=== PATIENT | female | born 1955 | race Caucasian/White ===

== ENCOUNTER → 2017-06-15 | Outpatient (CLI) | payer BC ==
--- NOTE | 2017-06-17 07:04 | MM ---
Reason for exam: screening (asymptomatic). Last mammogram was performed 1 year and 3 months ago. History: Patient is postmenopausal. Physical Findings: A clinical breast exam by your physician is recommended on an annual basis and results should be correlated with mammographic findings. MG Screening Mammo w CAD Bilateral CC and MLO view(s) were taken. Prior study comparison: March 10, 2016, bilateral MG screening mammo w CAD. November 15, 2014, bilateral MG screening mammo w CAD. There are scattered fibroglandular densities. No suspicious abnormality. No significant changes when compared with prior studies. ASSESSMENT: Negative, BI-RAD 1 RECOMMENDATION: Routine screening mammogram of both breasts in 1 year.
== END | disposition home or self-care (01) ==
LOC: RADMAMWWP 07:51
PROVIDERS: ATTEND Family Medicine
DX: Z12.31 Encounter for screening mammogram for malignant neoplasm of breast (principal)

== ENCOUNTER 2017-07-01 07:32 | Day surgery (SDC) | payer BC ==
[2017-06-29 14:47] VITALS: BMI 25.4
[~2017-07-01 07:32] MED LIST: LACTATED RINGERS 1,000 ML IV SCH
[2017-07-01 07:49] VITALS: TEMP 98.7
[2017-07-01 08:05] LABS: Glucose,Whole Blood 165 mg/dL (75-99)
--- NOTE | 2017-07-01 09:04 | P.GSHP ---
History of Present Illness H&P Date: 07/01/17 Chief Complaint: GERD, screening colonoscopy This a 62-year-old female who's had issues with GERD. She will stay for EGD and screening colonoscopy. Her last colonoscopy approximately 12 years ago. Past Medical History Past Medical History: Asthma, Diabetes Mellitus, GERD/Reflux Additional Past Medical History / Comment(s): SEASONAL ALLERGIES History of Any Multi-Drug Resistant Organisms: None Reported Past Surgical History: Adenoidectomy, Cholecystectomy, Orthopedic Surgery, Tonsillectomy, Tubal Ligation Additional Past Surgical History / Comment(s): RT TRIGGER FINGER SX. LT ROTATOR CUFF REPAIR. COLONOSCOPY Past Anesthesia/Blood Transfusion Reactions: Motion Sickness, Postoperative Nausea & Vomiting (PONV) Smoking Status: Former smoker - Past Family History Mother Family Medical History: No Reported History Medications and Allergies Home Medications Medication Instructions Recorded Confirmed Type Ascorbic Acid [Vitamin C] 500 mg PO DAILY 06/29/17 07/01/17 History Magnesium Oxide [Mag-Ox] 400 mg PO DAILY 06/29/17 07/01/17 History Montelukast [Singulair] 10 mg PO HS 06/29/17 07/01/17 History Omeprazole [PriLOSEC] 20 mg PO AC-SUPPER 06/29/17 07/01/17 History Potassium 99 mg PO DAILY 06/29/17 07/01/17 History Vitamin B Complex 1 each PO DAILY 06/29/17 07/01/17 History Vitamin E (Dl,Tocopheryl Acet) 400 unit PO DAILY 06/29/17 07/01/17 History [Vitamin E] sitaGLIPtin [Januvia] 100 mg PO DAILY 06/29/17 07/01/17 History Allergies Allergy/AdvReac Type Severity Reaction Status Date / Time Penicillins Allergy Anaphylaxis Verified 07/01/17 07:45 Surgical - Exam Vital Signs Resp 16 07/01/17 07:41 - General well developed, no distress - Eyes PERRL - ENT normal pinna - Neck no masses - Respiratory normal expansion - Cardiovascular Rhythm: regular - Abdomen Abdomen: soft, non tender Results - Labs Abnormal Lab Results - Last 24 Hours (Table) 07/01/17 Range/Units 07:56 POC Glucose (mg/dL) 165 H (75-99) mg/dL Assessment and Plan Plan: GERD we'll perform EGD. We'll perform screening colonoscopy.
[2017-07-01] MEDS ORDERED: PROPOFOL 10 MG/ML 20 ML VIAL IV ONE ×2 (09:05→10:08)
--- NOTE | 2017-07-01 09:21 | P.OP ---
Date of Procedure: 07/01/17 Preoperative Diagnosis: Screening colonoscopy Postoperative Diagnosis: Normal colon Procedure(s) Performed: Colonoscopy Anesthesia: MAC Surgeon: Rudy Garza Pathology: none sent Condition: stable Disposition: PACU Description of Procedure: PROCEDURE: The patient was placed on the endoscopy table in the lateral position. Digital rectal examination was performed which revealed no abnormalities. Flexible colonoscope was then placed in the patient's anus and passed throughout the entire colon. The ileocecal valve was visualized. The cecum, ascending, transverse, descending and sigmoid colon were normal. The rectum was normal as well. There were no masses, polyps or diverticula noted in the entire colon. SUMMARY OF FINDINGS: Normal colonoscopy.
[2017-07-01] MEDS ORDERED: IV FLUID CONTINUATION 1,000 ML IV ONE (10:07)
--- NOTE | 2017-07-01 10:20 | P.OP ---
Date of Procedure: 07/01/17 Preoperative Diagnosis: GERD Postoperative Diagnosis: Antral gastritis No hiatal hernia Mild esophagitis Procedure(s) Performed: EGD Anesthesia: MAC Surgeon: Rudy Garza Pathology: other (Antral esophagus) Condition: stable Disposition: PACU Description of Procedure: The patient's placed on the endoscopy table lateral position. She received IV sedation. The gastroscope placed oropharynx past esophagus stomach. Scope was placed through the pylorus. First and second portion of duodenum appeared normal. Scope summer back the antrum this. Mildly inflamed. A biopsies performed. The scope was then retroflexed and the remainder some appeared normal. There is no evidence of hiatal hernia. GE junction was at 40 cm. The distal esophagus. Inflamed a biopsies performed. The proximal esophagus appeared normal. Scope was withdrawn for patient.
[2017-07-01 10:24] VITALS: RESP 16
[2017-07-01 10:49] VITALS: BP 120/68; PULSE 78
== END 2017-07-01 11:15 | disposition home or self-care (01) ==
LOC: ORWHC2ENDO 07:32
PROVIDERS: ATTEND Surgery
DX: Z12.11 Encounter for screening for malignant neoplasm of colon (principal); K21.0 Gastro-esophageal reflux disease with esophagitis; K29.50 Unspecified chronic gastritis without bleeding; J30.9 Allergic rhinitis, unspecified; E11.9 Type 2 diabetes mellitus without complications; Z88.0 Allergy status to penicillin; Z79.84 Long term (current) use of oral hypoglycemic drugs; Z79.899 Other long term (current) drug therapy; Z87.891 Personal history of nicotine dependence
CPT/HCPCS: 88305; 88342; 45378; 43239; J2704

== ENCOUNTER → 2018-04-28 | Outpatient (CLI) | payer BC ==
[2018-04-28 13:00] LABS: Basophils % (A) 1 %; Eosinophils # (A) 0.2 k/uL (0-0.7); Eosinophils % (A) 3 %; HCT 39.7 % (34.0-46.0); HGB 13.5 gm/dL (11.4-16.0); Lymphocytes # (A) 1.6 k/uL (1.0-4.8); Lymphocytes % (A) 25 %; MCH 30.6 pg (25.0-35.0); MCHC 33.8 g/dL (31.0-37.0); MCV 90.5 fL (80.0-100.0); Mean Platelet Volume 7.3; Monocytes # (A) 0.3 k/uL (0-1.0); Monocytes % (A) 5 %; Neutrophils # (A) 4.2 k/uL (1.3-7.7); Neutrophils % (A) 65 %; Platelet Count 222 k/uL (150-450); RBC 4.39 m/uL (3.80-5.40); RDW 12.6 % (11.5-15.5); WBC 6.4 k/uL (3.8-10.6)
== END | disposition home or self-care (01) ==
LOC: LABPAT 11:33
PROVIDERS: ATTEND Obstetrics & Gynecology Obstetrics
DX: Z01.818 Encounter for other preprocedural examination (principal); Z01.812 Encounter for preprocedural laboratory examination; N95.0 Postmenopausal bleeding
CPT/HCPCS: 36415; 85025; 93005

== ENCOUNTER 2018-05-16 08:57 | Day surgery (SDC) | payer BC ==
[2018-05-11 10:35] VITALS: BMI 23.8
[~2018-05-16 08:57] MED LIST changes: +DEXAMETHASONE SOD PHOSPHATE 10 MG/ML 1 ML VIAL IV ONE; +LIDOCAINE 1% 20 ML VIAL (10MG/ML) FOR IV START INTRADERMA PRN; +MIDAZOLAM 2 MG/2 ML VIAL IV PRN; +ONDANSETRON 4 MG/2 ML VIAL IVP ONE; +Pre Op ABX Message 1 EACH MISC MISCELLANE ONE; +fentaNYL (PF) 50 MCG/ML 2 ML AMP IV PRN
[2018-05-16 09:41] VITALS: RESP 16
[2018-05-16 09:55] LABS: Glucose,Whole Blood 111 mg/dL (75-99)
[2018-05-16] MEDS ORDERED: KETOROLAC 30 MG/ML 1 ML VIAL ONE (10:21)
[2018-05-16] MEDS ORDERED: PROPOFOL 10 MG/ML 20 ML VIAL IV ONE (10:21)
[2018-05-16] MEDS ORDERED: LIDOCAINE 1% INJ 10MG/ML (20 ML MDV) ONE (10:21)
[2018-05-16] MEDS ORDERED: fentaNYL (PF) 50 MCG/ML 2 ML AMP ONE (10:21)
[2018-05-16] MEDS ORDERED: MIDAZOLAM 2 MG/2 ML VIAL ONE (10:21)
--- NOTE | 2018-05-16 10:47 | P.OP ---
Date of Procedure: 05/16/18 Preoperative Diagnosis: PMB, endometrial polyp with non diagnostic office EMB Anesthesia: RAMONAA Surgeon: Cassandra Heard Estimated Blood Loss (ml): 5 IV fluids (ml): 200 Urine output (ml): 100 Pathology: other (Endometrial curettings) Condition: stable Disposition: PACU Indications for Procedure: endometrial polyp, PMB Operative Findings: Atrophic appearing endometrium Description of Procedure: Patient was seen in the preoperative suite and informed consent was obtained. All questions were answered. Next Patient was taken to the operating suite where general anesthesia was obtained without difficulty by the anesthesia department. She was prepped and draped in normal sterile fashion in the dorsal lithotomy position. A red rubber catheter was used to drain the bladder clear yellow urine. A weighted speculum was placed in the posterior vaginal vault and the anterior lip of the cervix was visualized and grasped with a single-tooth tenaculum. The endocervical canal was then dilated the uterine sound measured 6 cm. The hysteroscope was then placed in to the endometrial cavity and atrophic appearing endometrium was noted A sharp curettage was performed and a scant amount of tissue was noted. The single-tooth tenaculum was taken off of the anterior lip of the cervix and hemostasis was appreciated. All counts are correct 2 patient was taken the recovery room awake and in stable condition
[2018-05-16 11:00] VITALS: TEMP 97.6
[2018-05-16 11:06] LABS: Glucose,Whole Blood 129 mg/dL (75-99)
[2018-05-16 12:15] VITALS: BP 131/63; PULSE 68
== END 2018-05-16 12:37 | disposition home or self-care (01) ==
LOC: OR 08:57
PROVIDERS: ATTEND Obstetrics & Gynecology Obstetrics
DX: N84.0 Polyp of corpus uteri (principal); E11.9 Type 2 diabetes mellitus without complications; F32.9 Major depressive disorder, single episode, unspecified; K21.9 Gastro-esophageal reflux disease without esophagitis; Z79.899 Other long term (current) drug therapy; Z90.49 Acquired absence of other specified parts of digestive tract; Z98.51 Tubal ligation status; Z88.0 Allergy status to penicillin; Z79.82 Long term (current) use of aspirin; Z83.3 Family history of diabetes mellitus; Z79.84 Long term (current) use of oral hypoglycemic drugs
CPT/HCPCS: 88305; 58558; J2250; J1100; J2405; J2001; J3010; J1885; J2704

== ENCOUNTER → 2018-09-28 | Outpatient (CLI) | payer BC ==
[2018-09-29 03:18] LABS: Vitamin D 25 Hydroxy 30.6 ng/mL (30.0-100.0)
== END ==
LOC: LABWHC1 15:34
PROVIDERS: ATTEND Psychiatry & Neurology Neurology
DX: G62.9 Polyneuropathy, unspecified (principal); M79.10 Myalgia, unspecified site; R41.3 Other amnesia
CPT/HCPCS: 36415; 82306; 82607; 82747

== ENCOUNTER → 2018-10-11 | Outpatient (CLI) | payer BC ==
--- NOTE | 2018-10-12 07:55 | CT ---
EXAMINATION TYPE: CT chest wo con DATE OF EXAM: 10/11/2018 COMPARISON: None HISTORY: SOB x4 days CT DLP: 498 mGycm, Automated exposure control for dose reduction was used. CONTRAST: Performed injected with 0 mL of Isovue 300. TECHNIQUE: Axial images were obtained at 5 mm thick sections. Reconstructed images are reviewed on [employer] computer in the coronal plane. FINDINGS: Portion of the thyroid visualized is normal. Some mild pneumonitis changes in the right apex. No masses are identified. No enlarged mediastinal or hilar adenopathy is evident. The ascending aorta diameter at the level o f the main pulmonary artery is 3.3 cm. The main pulmonary artery diameter at the bifurcation is 2.[address] sections are obtained through the upper abdomen. Abdomen is essentially unremarkable. IMPRESSIONS: 1. There is some mild increased lung markings at the lung apices may be related to some scarring or m ild pneumonitis change. An acute pulmonary process not otherwise evident.
== END | disposition home or self-care (01) ==
LOC: RADCTMAIN 16:36
PROVIDERS: ATTEND Internal Medicine Rheumatology
DX: D86.9 Sarcoidosis, unspecified (principal)
CPT/HCPCS: 71250

== ENCOUNTER → 2019-06-12 | Outpatient (CLI) | payer BC ==
--- NOTE | 2019-06-14 09:42 | MM ---
Reason for exam: screening (asymptomatic). Last mammogram was performed 2 years ago. History: Patient is postmenopausal. Physical Findings: A clinical breast exam by your physician is recommended on an annual basis and results should be correlated with mammographic findings. MG Screening Mammo w CAD Bilateral CC and MLO view(s) were taken. Prior study comparison: June 15, 2017, bilateral MG screening mammo w CAD. March 10, 2016, bilateral MG screening mammo w CAD. The breast tissue is almost entirely fat. No significant changes when compared with prior studies. ASSESSMENT: Negative, BI-RAD 1 RECOMMENDATION: Routine screening mammogram of both breasts in 1 year.
== END ==
LOC: RADMAMWWP 16:29
PROVIDERS: ATTEND Obstetrics & Gynecology Obstetrics
DX: Z12.31 Encounter for screening mammogram for malignant neoplasm of breast (principal)
CPT/HCPCS: 77067

== ENCOUNTER → 2020-09-09 | Outpatient (CLI) | payer MEDICARE ==
--- NOTE | 2020-09-10 11:19 | MM ---
Reason for exam: screening (asymptomatic). Last mammogram was performed 1 year and 3 months ago. History: Patient is postmenopausal. Physical Findings: A clinical breast exam by your physician is recommended on an annual basis and results should be correlated with mammographic findings. MG Screening Mammo w CAD Bilateral CC and MLO view(s) were taken. Prior study comparison: June 12, 2019, bilateral MG screening mammo w CAD. June 15, 2017, bilateral MG screening mammo w CAD. The breast tissue is almost entirely fat. No significant changes when compared with prior studies. ASSESSMENT: Negative, BI-RAD 1 RECOMMENDATION: Routine screening mammogram of both breasts in 1 year.
== END | disposition home or self-care (01) ==
LOC: RADMAMWWP 07:42
PROVIDERS: ATTEND Family Medicine
DX: Z12.31 Encounter for screening mammogram for malignant neoplasm of breast (principal)
CPT/HCPCS: 77067

== ENCOUNTER 2020-10-16 07:29 | Day surgery (SDC) | payer MEDICARE ==
[2020-10-14 12:10] VITALS: BMI 25.3
[~2020-10-16 07:29] MED LIST changes: -DEXAMETHASONE SOD PHOSPHATE 10 MG/ML 1 ML VIAL IV ONE; +LIDOCAINE 1% (10MG/ML) FOR IV START INTRADERMA PRN; -LIDOCAINE 1% 20 ML VIAL (10MG/ML) FOR IV START INTRADERMA PRN; -MIDAZOLAM 2 MG/2 ML VIAL IV PRN; -ONDANSETRON 4 MG/2 ML VIAL IVP ONE; -Pre Op ABX Message 1 EACH MISC MISCELLANE ONE; -fentaNYL (PF) 50 MCG/ML 2 ML AMP IV PRN
[2020-10-16 07:52] VITALS: RESP 16; TEMP 96.9
[2020-10-16 08:03] LABS: Glucose,Whole Blood 125 mg/dL (75-99)
[2020-10-16] MEDS ORDERED: PROPOFOL 10 MG/ML 20 ML VIAL IV ONE (08:34)
[2020-10-16] MEDS ORDERED: LIDOCAINE 1% INJ 10MG/ML (20 ML MDV) ONE (08:34)
--- NOTE | 2020-10-16 08:40 | P.GSHP ---
History of Present Illness H&P Date: 10/16/20 Chief Complaint: GI bleed This is a 65-year-old female presents today for EGD. She's had issues rectal bleeding. Past Medical History Past Medical History: Asthma, Diabetes Mellitus, GERD/Reflux Additional Past Medical History / Comment(s): bleeding with stool,hx SEASONAL ALLERGIES,POST MENOPAUSAL BLEEDING,MIGRAINES History of Any Multi-Drug Resistant Organisms: None Reported Past Surgical History: Adenoidectomy, Cholecystectomy, Orthopedic Surgery, Tonsillectomy, Tubal Ligation Additional Past Surgical History / Comment(s): RT TRIGGER FINGER SX. LT ROTATOR CUFF REPAIR. COLONOSCOPY Past Anesthesia/Blood Transfusion Reactions: Motion Sickness, Postoperative Nausea & Vomiting (PONV) Smoking Status: Former smoker - Past Family History Mother Family Medical History: No Reported History Medications and Allergies Home Medications Medication Instructions Recorded Confirmed Type Ascorbic Acid [Vitamin C] 1,000 mg PO DAILY 06/29/17 10/16/20 History Montelukast [Singulair] 10 mg PO HS 06/29/17 10/16/20 History Potassium 99 mg PO DAILY 06/29/17 10/16/20 History Aspirin [Adult Low Dose Aspirin EC] 81 mg PO DAILY 05/11/18 10/16/20 History Mirabegron [Myrbetriq] 50 mg PO DAILY 05/11/18 10/16/20 History Repaglinide [Prandin] 1 mg PO DAILY 05/11/18 10/16/20 History Cholecalciferol (Vitamin D3) 125 mcg PO BID 10/14/20 10/16/20 History [Vitamin D3 (5000 Iu)] Hydroxychloroquine Sulfate 200 mg PO BID 10/14/20 10/16/20 History [Plaquenil] Magnesium 250 mg PO DAILY 10/14/20 10/16/20 History Rosuvastatin Calcium 20 mg PO DAILY 10/14/20 10/16/20 History Vitamin B Complex 1 each PO Q2D 10/14/20 10/16/20 History ramipriL [Ramipril] 2.5 mg PO QAM 10/14/20 10/16/20 History Allergies Allergy/AdvReac Type Severity Reaction Status Date / Time Penicillins Allergy Anaphylaxis Verified 10/16/20 07:45 Surgical - Exam Vital Signs Temp Pulse Resp BP Pulse Ox 96.9 F L 73 16 126/66 95 10/16/20 07:44 10/16/20 07:44 10/16/20 07:44 10/16/20 07:44 10/16/20 07:44 - General well developed, well nourished, no distress - Eyes PERRL - ENT normal pinna - Neck no masses - Respiratory normal expansion - Cardiovascular Rhythm: regular - Abdomen Abdomen: soft, non tender Results - Labs Abnormal Lab Results - Last 24 Hours (Table) 10/16/20 Range/Units 08:01 POC Glucose (mg/dL) 125 H (75-99) mg/dL Assessment and Plan Assessment: GI bleed. We'll perform EGD.
--- NOTE | 2020-10-16 08:47 | P.OP ---
Date of Procedure: 10/16/20 Preoperative Diagnosis: GI bleed Postoperative Diagnosis: Antral gastritis Hiatal hernia Esophagitis Procedure(s) Performed: EGD Anesthesia: MAC Surgeon: Rudy Garza Pathology: other (Antrum, esophagus) Condition: stable Disposition: PACU Description of Procedure: The patient's placed on the endoscopy table in the lateral position. She received IV sedation. The gastroscope placed oropharynx passed in the esophagus into the stomach. Scope was then placed through the pylorus. First and second portion of the duodenum appeared normal. Scope was then brought back the antrum this. Mildly inflamed. A biopsies performed. Scope was unretroflexed and remainder of the stomach appeared normal. Patient had a moderate size hiatal hernia. The GE junction was at 38 cm. The distal esophagus was mildly inflamed. A biopsies performed. The proximal esophagus appeared normal. Scope was withdrawn.
[2020-10-16 09:27] VITALS: BP 118/72; PULSE 81
== END 2020-10-16 09:38 | disposition home or self-care (01) ==
LOC: ORWHC2ENDO 07:29
PROVIDERS: ATTEND Surgery
DX: K29.71 Gastritis, unspecified, with bleeding (principal); K31.9 Disease of stomach and duodenum, unspecified; K21.01 Gastro-esophageal reflux disease with esophagitis, with bleeding; K44.9 Diaphragmatic hernia without obstruction or gangrene; J45.909 Unspecified asthma, uncomplicated; E11.9 Type 2 diabetes mellitus without complications; I10 Essential (primary) hypertension; E78.5 Hyperlipidemia, unspecified; Z87.42 Personal history of other diseases of the female genital tract; Z86.69 Personal history of other diseases of the nervous system and sense organs; Z90.89 Acquired absence of other organs; Z90.49 Acquired absence of other specified parts of digestive tract; Z98.890 Other specified postprocedural states; Z98.51 Tubal ligation status; Z87.898 Personal history of other specified conditions; Z91.89 Other specified personal risk factors, not elsewhere classified; Z87.891 Personal history of nicotine dependence; Z79.899 Other long term (current) drug therapy; Z79.84 Long term (current) use of oral hypoglycemic drugs; Z79.82 Long term (current) use of aspirin; Z88.0 Allergy status to penicillin
CPT/HCPCS: 88305; 43239; J2001; J2704

== ENCOUNTER → 2021-10-01 | Outpatient (CLI) | payer MEDICARE ==
--- NOTE | 2021-10-05 11:43 | MM ---
Reason for exam: screening (asymptomatic). Last mammogram was performed 1 year and 1 month ago. History: Patient is postmenopausal. Physical Findings: A clinical breast exam by your physician is recommended on an annual basis and results should be correlated with mammographic findings. MG 3D Screening Mammo W/Cad Bilateral CC and MLO view(s) were taken. Prior study comparison: September 09, 2020, bilateral MG screening mammo w CAD. June 12, 2019, bilateral MG screening mammo w CAD. The breast tissue is almost entirely fat. No significant changes when compared with prior studies. ASSESSMENT: Negative, BI-RAD 1 RECOMMENDATION: Routine screening mammogram of both breasts in 1 year.
== END | disposition home or self-care (01) ==
LOC: RADMAMWWP 07:57
PROVIDERS: ATTEND Family Medicine
DX: Z12.31 Encounter for screening mammogram for malignant neoplasm of breast (principal); Z78.0 Asymptomatic menopausal state
CPT/HCPCS: 77063; 77067

== ENCOUNTER → 2022-09-28 | Outpatient (CLI) | payer MEDICARE ==
[2022-09-28 18:35] LABS: HCT 38.7 % (37.2-46.3); HGB 12.5 g/dL (12.0-15.0); MCH 30.7 pg (27.0-32.0); MCHC 32.3 g/dL (32.0-37.0); MCV 95.1 fL (80.0-97.0); Mean Platelet Volume 10.3 fL (9.5-12.2); NRBC Per 100 WBC 0 /100 WBCS (0.0-0.0); Platelet Count 216 X 10*3/uL (140-440); RBC 4.07 X 10*6/uL (4.10-5.20); RDW 12.1 % (11.5-14.5); WBC 5.48 X 10*3/uL (4.50-10.00)
[2022-09-28 18:40] LABS: African American GFR (CKD) 96.8 (60.0-200.0); Anion Gap 10.7 mmol/L (10.00-18.00); Blood Urea Nitrogen 19.3 mg/dL (9.0-27.0); Carbon Dioxide 24.2 mmol/L (20.0-27.5); Non-African American GFR(CKD) 83.5 (60.0-200.0); Potassium 4.5 mmol/L (3.5-5.5)
== END | disposition home or self-care (01) ==
LOC: LABPAT 12:32
PROVIDERS: ATTEND Internal Medicine Clinical Cardiac Electrophysiology
DX: Z01.812 Encounter for preprocedural laboratory examination (principal); I48.0 Paroxysmal atrial fibrillation; I49.5 Sick sinus syndrome
CPT/HCPCS: 80051; 82565; 84520; 85027

== ENCOUNTER → 2022-10-05 | Outpatient (CLI) | payer MEDICARE ==
--- NOTE | 2022-10-05 20:15 | MM ---
Reason for Exam: Screening (asymptomatic). Last screening mammogram was performed 12 month(s) ago. Patient History: Menarche at age 7. First Full-Term at age 23. Postmenopausal. Risk Values: Rosie 5 year model risk: 2.1%. NCI Lifetime model risk: 6.4%. Prior Study Comparison: 06/12/2019 Bilateral Screening Mammogram, [facility]. 09/09/2020 Bilateral Screening Mammogram, [facility]. 10/01/2021 Bilateral Screening Mammogram, [facility]. Tissue Density: There are scattered fibroglandular densities. Findings: Analyzed By CAD. There is no suspicious group of microcalcifications or new suspicious mass in either breast. Overall Assessment: Negative, BI-RAD 1 Management: Screening Mammogram of both breasts in 1 year. 1. Patient should continue monthly self breast exams. 2. A clinical breast exam by your physician is recommended on an annual basis. 3. This exam should not preclude additional follow-up of suspicious palpable abnormalities. Electronically signed and approved by: Jordan Pillai M.D. Radiologist
== END | disposition home or self-care (01) ==
LOC: RADMAMWWP 06:53
PROVIDERS: ATTEND Family Medicine
DX: Z12.31 Encounter for screening mammogram for malignant neoplasm of breast (principal); Z78.0 Asymptomatic menopausal state
CPT/HCPCS: 77063; 77067

== ENCOUNTER 2023-01-13 13:35 | Day surgery (SDC) | payer MEDICARE ==
[2023-01-10 15:04] VITALS: BMI 24.6
[~2023-01-13 13:35] MED LIST changes: +CLINDAMYCIN 600 MG in SODIUM CHLORIDE 0.9% 250 ML IRRIGATION PRN; +CLINDAMYCIN 900 MG in DEXTROSE 5% IN WATER 50 ML IVPB PRN; -LACTATED RINGERS 1,000 ML IV SCH; -LIDOCAINE 1% (10MG/ML) FOR IV START INTRADERMA PRN
[2023-01-13] MEDS ORDERED: ONDANSETRON 4 MG/2 ML VIAL IVP STA (14:25)
[2023-01-13] MEDS ORDERED: METOCLOPRAMIDE 5 MG/ML 2 ML VIAL IVP STA (14:25)
[2023-01-13] MEDS ORDERED: FAMOTIDINE 20 MG/2 ML VIAL IV ONE (14:27)
[2023-01-13] MEDS: SODIUM CHLORIDE 0.9% 1,000 ML IV SCH ×2 (14:30→19:40)
[2023-01-13 14:37] LABS: Glucose,Whole Blood 112 mg/dL (70-110)
[2023-01-13] MEDS ORDERED: diphenhydrAMINE 50 MG/ML 1 ML VIAL ONE (15:40)
[2023-01-13] MEDS ORDERED: fentaNYL (PF) 50 MCG/ML 2 ML AMP ONE (15:40)
[2023-01-13] MEDS ORDERED: MIDAZOLAM 2 MG/2 ML VIAL ONE (15:40)
[2023-01-13] MEDS ORDERED: IOPAMIDOL-370 100ML BTL INJ ONE (16:02)
[2023-01-13] MEDS ORDERED: LIDOCAINE 1% INJ 10MG/ML (20 ML MDV) ONE ×2 (16:12→16:46)
[2023-01-13] MEDS ORDERED: LIDOCAINE 1% INJ 10MG/ML (20 ML MDV) SQ ONE ×3 (16:37→16:47)
[2023-01-13] MEDS ORDERED: ACETAMINOPHEN TAB 325 MG TAB PO PRN (18:26)
--- NOTE | 2023-01-13 18:47 | P.EPPROC ---
- EP Procedure Note Electrophysiology Procedure Note: Diagnosis Severe sick sinus syndrome with junctional escape rhythm with frequent pauses in during the day Prolonged ME interval AV node Wenckebach block less than 130 bpm. Very long ME interval when pacing at 110-120 bpm Bradycardia, standard pacemaker will result in a high RV pacing %, close to 100% Biventricular pacemaker to avoid high RV pacing percentage and manage Sick Sinus Syndrome and AV node disease, symptomatic Procedure LB/ biventricular pacemaker implantation Left upper extremity venogram Details Patient was brought to the EP lab in a fasting state. Written informed consent was obtained prior to the procedure. Conscious sedation provided by anesthesia team Left upper extremity venogram performed. 15 mL IV dye injected. Patent left subclavian/axillary venous system IV antibiotics administered. Local anesthesia administered. A 4 cm incision made in the pectoral area. Subfascial pocket made. Venous access obtained Venous sheaths placed. Leads placed in the right heart Atrial lead position the right atrial appendage. Atrial pacing performed to evaluate AV node. Patient was kept awake specifically to test her AV conduction with atrial pacing Very prolonged paced ME interval at the pacing rate of 110 beats a minute and AV node Wenckebach block less than 130 bpm during atrial pacing Therefore a decision was made to proceed with a biventricular pacemaker instead of a standard dual-chamber pacemaker to avoid a high percentage of RV pacing Medtronic atrial lead, 53 cm passive lead position in the right atrial appendage. Model #4574. P waves 2.5 mV pacing impedance 551 ohms and pacing threshold 0.5 V at 0.4 ms RV lead position in the RV apex. Medtronic passive lead 58 cm, model #4074, R waves 4-5 mV, pacing impedance 1216 ohms and pacing threshold 0.5 V at 0.4 ms LB lead positioned in the RV septum, at the left bundle. Excellent unipolar pacing threshold of 0.75 V at 0.4 ms with a right bundle branch block at time, typical with a pacing stimulus to V6 peak of 88-90 ms Intraoperatively even bipolar pacing had a typical right bundle branch block with an even shorter stim to V6 of 84 ms However when the biventricular pacemaker can was connected, bipolar pacing via the left bundle lead resulted in an RV paced rhythm Therefore unipolar pacing was performed from the left bundle lead Biventricular pacemaker device connected to the leads and placed in the sub fascial pocket Patient tolerated the procedure well without acute complications. Pacemaker programmed to DDDR with preferential left bundle pacing Result Successful biventricular pacemaker implantation with left bundle pacing with a typical right bundle branch block paced QRS with a stim-V6 time of less than 90 ms
[2023-01-13] MEDS ORDERED: ACETAMINOPHEN IV (For NPO) 1,000 MG in EMPTY BAG 1 BAG IVPB ONE (19:00)
[2023-01-13] MEDS: CLINDAMYCIN 900 MG in DEXTROSE 5% IN WATER 50 ML IVPB SCH ×2 (21:49)
[2023-01-13] MEDS ORDERED: IPRATROPIUM BROMIDE 0.06% NASAL SPRAY (15 ML) EA NOSTRIL PRN (22:30)
[2023-01-13] MEDS ORDERED: RIVAROXABAN 20 MG TAB PO SCH (22:30)
[2023-01-13] MEDS: SYMBICORT 80-4.5 MCG INHALER INHALATION SCH (22:37)
[2023-01-14] MEDS: SODIUM CHLORIDE 0.9% 1,000 ML IV SCH ×2 (00:39→00:40)
[2023-01-14 01:13] VITALS: PULSE 68
[2023-01-14] MEDS: CLINDAMYCIN 900 MG in DEXTROSE 5% IN WATER 50 ML IVPB SCH ×2 (03:28)
[2023-01-14 06:04] LABS: Glucose,Whole Blood 109 mg/dL (70-110)
--- NOTE | 2023-01-14 07:02 | XR ---
EXAMINATION TYPE: XR chest 2V DATE OF EXAM: 01/14/2023 COMPARISON: Chest CT 2019 HISTORY: Lead placement check. TECHNIQUE: Frontal and lateral views of the chest are obtained. FINDINGS: There is no focal air space opacity, pleural effusion, or pneumothorax seen. The cardiac silhouette size is stable and within normal limits. Multi lead pacemaker with leads projecting into right atrium, right ventricle, and coronary sinus. The osseous structures are intact. Cholecystectomy clips are noted. IMPRESSION: As above.
[2023-01-14 07:58] VITALS: BP 108/54; RESP 16; TEMP 97.8
--- NOTE | 2023-01-14 08:00 | P.DS ---
Providers Attending physician: Sundeep Merlos Primary care physician: Enriuqe Jesus MD Hospital Course: Patient is doing well. Looks comfortable No hematoma. Minimal soakage No chest pain no dizziness no shortness of breath Normal heart sounds no murmurs no gallops Clear lungs no rhonchi no crackles would air entry Blood pressure low normal Impression Severe sick sinus syndrome with severe daytime bradycardia, not on any medications, normal TSH Abnormal AV node function AV node Wenckebach block less than 130 bpm during testing Even at the pacing rate of 110 beats a minute, paced [place] interval was very prolonged, increasing the likelihood of significant RV pacing after 100% with standard dual-chamber pacing A biventricular pacemaker with left bundle pacing was performed successfully with excellent thresholds and stability Today her twelve-lead EKG shows distal His bundle pacing with nonselective capture at output 3.5 V Plan after completion of IV antibiotics patient may go home Device interrogation today Twelve-lead EKG at lower outputs of 1 V and 2 V to see if this is change in configuration of the QRS with pacing outputs Reassessment of this in 3 months Plan - Discharge Summary Discharge Rx Participant: Yes New Discharge Prescriptions: Continue Montelukast [Singulair] 10 mg PO DAILY Ascorbic Acid [Vitamin C] 1,000 mg PO DAILY Mirabegron [Myrbetriq] 50 mg PO HS Repaglinide [Prandin] 1 mg PO DAILY Vitamin B Complex 1 each PO Q2D Cholecalciferol (Vitamin D3) [Vitamin D3 (5000 Iu)] 125 mcg PO DAILY Hydroxychloroquine Sulfate [Plaquenil] 200 mg PO BID Cyclobenzaprine [Flexeril] 2.5 mg PO HS Omeprazole 40 mg PO DAILY Rivaroxaban [Xarelto] 20 mg PO HS Ginkgo Biloba [place]side Extract [Ginkgo Biloba] 120 mg PO DAILY Losartan Potassium [Cozaar] 12.5 mg PO DAILY Magnesium 400 mg PO DAILY SUMAtriptan succinate 100 mg PO DIRECTED PRN PRN Reason: Migraine Headache Ipratropium [place] 0.06%Nasal [Atrovent Nasal 0.06%] 2 spray EA NOSTRIL DIRECTED PRN PRN Reason: ASthma Fluticasone/Umeclidin/Vilanter [Trelegy Ellipta 100-62.5-25] 1 inhalation INHALATION DIRECTED PRN PRN Reason: Asthma Discharge Medication List Ascorbic Acid [Vitamin C] 1,000 mg PO DAILY 06/29/17 [History] Montelukast [Singulair] 10 mg PO DAILY 06/29/17 [History] Mirabegron [Myrbetriq] 50 mg PO HS 05/11/18 [History] Repaglinide [Prandin] 1 mg PO DAILY 05/11/18 [History] Cholecalciferol (Vitamin D3) [Vitamin D3 (5000 Iu)] 125 mcg PO DAILY 10/14/20 [History] Hydroxychloroquine Sulfate [Plaquenil] 200 mg PO BID 10/14/20 [History] Vitamin B Complex 1 each PO Q2D 10/14/20 [History] Cyclobenzaprine [Flexeril] 2.5 mg PO HS 07/01/21 [History] Losartan Potassium [Cozaar] 12.5 mg PO DAILY 07/01/21 [History] Omeprazole 40 mg PO DAILY 07/01/21 [History] Fluticasone/Umeclidin/Vilanter [Trelegy Ellipta 100-62.5-25] 1 inhalation INHALATION DIRECTED PRN 10/19/22 [History] Ginkgo Biloba [place] Extract [Ginkgo Biloba] 120 mg PO DAILY 10/19/22 [History] Ipratropium [place] 0.06%Nasal [Atrovent Nasal 0.06%] 2 spray EA NOSTRIL DIRECTED PRN 10/19/22 [History] Magnesium 400 mg PO DAILY 10/19/22 [History] Rivaroxaban [Xarelto] 20 mg PO HS 10/19/22 [History] SUMAtriptan succinate 100 mg PO DIRECTED PRN 10/19/22 [History] Follow up Appointment(s)/Referral(s): Sundeep Merlos MD [STAFF PHYSICIAN] - 1 Week Activity/Diet/Wound Care/Special Instructions: PATIENT EDUCATION MATERIAL Instructions following a heart rhythm device implant. 1. Keep dressing DRY for 5 DAYS. You may cover the area with Saran or Cling Wrap, prior to a shower. 2. The dressing will be removed in the Device Clinic at [facility]. Absorbable sutures were used to close the wound. 3. Avoid raising the left arm above the shoulder level. 4 week restriction 4. Avoid arm movements, like backscratching, rubbing the head, or pulling on a cord. 4 weeks restriction 5. Gentle range of motion movements of the shoulder, closest to the incision should be performed to avoid a frozen shoulder. (Pendulum exercises of the shoulder) 6. The opposite arm may be used freely. 7. Avoid driving for 7 days. 8. Avoid activities such as golfing, swimming, weed whacking, lifting more than 10 pounds weight, bowling, gymnastics and weight training/lifting. (6 weeks restriction) 9. Activities such as wood chopping with an axe, pull-ups in the gymnasium, power lifting, arc-welding, being close to home induction cooktops will always be a problem. 10. Arm sling is only a reminder not to raise the arm above the head. You do not need to keep the arm completely immobilized. Your free to move the arm and use it and for normal activities. In case of any problems, please call [facility], [place], @ [phone], Attention: Device Clinic Device clinic follow-up in 5 days Follow-up with primary energy auditor in 3 months Discharge Disposition: HOME SELF-CARE
--- NOTE | 2023-01-14 08:02 | P.PRLE ---
RE: Cassidy Hernandez Dear Carmella rashid has severe sick sinus syndrome with significant daytime bradycardia as well as abnormal AV node function. She has undergone successful A. fib ablation and has not had any further episodes of atrial fibrillation However her Sick Sinus Syndrome persisted despite that Yesterday she underwent a biventricular pacemaker with a left bundle pacing lead, to avoid RV pacing and future risk of cardio myopathy The lead and device are functioning well. She will continue current medications including xarelto Thank you for entrusting me with the care of the patient Warm regards Sincerely Sudneep Merlos
[2023-01-14] MEDS ORDERED: ASCORBIC ACID 500 MG TAB PO SCH (09:00)
[2023-01-14] MEDS ORDERED: CHOLECALCIFEROL 125 MCG (5000 IU) TABLET PO SCH (09:00)
[2023-01-14] MEDS ORDERED: LOSARTAN 25 MG TAB PO SCH (09:00)
[2023-01-14] MEDS ORDERED: REPAGLINIDE 1 MG TAB PO SCH (09:00)
[2023-01-14] MEDS ORDERED: SUMAtriptan succinate 50 MG TAB PO PRN (09:00)
[2023-01-14] MEDS ORDERED: HYDROXYCHLOROQUINE SULFATE 200 MG TAB PO SCH (09:00)
[2023-01-14] MEDS ORDERED: PANTOPRAZOLE 40 MG TABLET PO SCH (09:00)
[2023-01-14] MEDS ORDERED: GINKGO BILOBA LEAF EXTRACT PO SCH (09:00)
[2023-01-14] MEDS ORDERED: FOLIC ACID-VIT B COMPLEX-VIT C 1 CAP PO SCH (09:00)
[2023-01-14] MEDS ORDERED: MAGNESIUM OXIDE 400 MG TAB PO SCH (09:00)
[2023-01-14] MEDS ORDERED: MONTELUKAST 10 MG TAB PO SCH (09:00)
[2023-01-14] MEDS: SYMBICORT 80-4.5 MCG INHALER INHALATION SCH (09:18)
[2023-01-14] MEDS: IPRATROPIUM 0.5 MG/2.5 ML NEBU INHALATION SCH ×2 (09:18→11:53)
[2023-01-14] MEDS ORDERED: CYCLOBENZAPRINE 5 MG TAB PO SCH (21:00)
[2023-01-14] MEDS ORDERED: NON FORMULARY DRUG (Mirabegron [Myrbetriq] 50 MG Tab.Er.24h) PO SCH (21:00)
== END 2023-01-14 13:20 | disposition home or self-care (01) ==
LOC: CATHEP 13:35 → 6NMEDSUR 18:26 → CATHEP 01-14 13:20
PROVIDERS: ATTEND Internal Medicine Clinical Cardiac Electrophysiology
DX: I45.10 Unspecified right bundle-branch block (principal); I49.5 Sick sinus syndrome
CPT/HCPCS: 33225; 33208; 71046; C1769 ×3; C2621; C1887; C1892; C1898 ×2; J2250; J1200; J2765; J2405; J2001; J3010; Q9967

== ENCOUNTER → 2023-10-11 | Outpatient (CLI) | payer MEDICARE ==
--- NOTE | 2023-10-12 08:55 | MM ---
Reason for Exam: Screening (asymptomatic). Last screening mammogram was performed 12 month(s) ago. Patient History: Menarche at age 7. First Full-Term at age 23. Postmenopausal. Risk Values: Rosie 5 year model risk: 2.1%. NCI Lifetime model risk: 6.1%. Prior Study Comparison: 09/09/2020 Bilateral Screening Mammogram, [facility]. 10/01/2021 Bilateral Screening Mammogram, [facility]. 10/05/2022 Bilateral MG 3D screening mammo w/cad, [facility]. Tissue Density: The breast tissue is almost entirely fat. Findings: Analyzed By CAD. There is no suspicious group of microcalcifications or new suspicious mass. Account Development Manager projects over the left axilla limiting evaluation. There is no suspicious group of microcalcifications or new suspicious mass. Pacemaker projects over the left axilla limiting evaluation. Overall Assessment: Negative, BI-RAD 1 Management: Screening Mammogram of both breasts in [address] [facility] will attempt to contact patient to return for supplemental views and ultrasound if indicated. Patient should continue monthly self-breast exams. A clinical breast exam by your physician is recommended on an annual basis. This exam should not preclude additional follow-up of suspicious palpable abnormalities. Note on Rosie scores and lifetime risk: 1. A Rosie score greater than 3% is considered moderate risk. If this is the case, consider specialist referral to assess eligibility for a risk reducing agent. 2. If overall lifetime risk for the development of breast cancer is 20% or higher, the patient may qualify for future screening with alternating mammogram and breast MRI. Electronically signed and approved by: Aman Kohli DO
== END | disposition home or self-care (01) ==
LOC: RADMAMWWP 08:07
PROVIDERS: ATTEND Family Medicine
DX: Z12.31 Encounter for screening mammogram for malignant neoplasm of breast (principal); Z78.0 Asymptomatic menopausal state
CPT/HCPCS: 77063; 77067

== ENCOUNTER 2023-10-27 07:36 | Day surgery (SDC) | payer MEDICARE ==
[~2023-10-27 07:36] MED LIST changes: -CLINDAMYCIN 600 MG in SODIUM CHLORIDE 0.9% 250 ML IRRIGATION PRN; -CLINDAMYCIN 900 MG in DEXTROSE 5% IN WATER 50 ML IVPB PRN; +LIDOCAINE 1% (10MG/ML) FOR IV START INTRADERMA PRN
[2023-10-27] MEDS: LACTATED RINGERS 1,000 ML IV SCH (08:04)
[2023-10-27 08:19] LABS: Glucose,Whole Blood 122 mg/dL (70-110)
[2023-10-27 08:22] VITALS: TEMP 97
[2023-10-27] MEDS ORDERED: PROPOFOL 10 MG/ML 20 ML VIAL IV ONE (09:16)
--- NOTE | 2023-10-27 09:19 | P.GSHP ---
History of Present Illness H&P Date: 10/27/23 Chief Complaint: Gerd, change in bowel habits Is a 68-year-old female with complaints of gerd and change in bowel habits. Patient went today for EGD and screening colonoscopy. Past Medical History Past Medical History: Atrial Fibrillation, Asthma, Diabetes Mellitus, GERD/Reflux, Hyperlipidemia, Rheumatoid Arthritis (RA) Additional Past Medical History / Comment(s): bleeding with stool,. hx SEASONAL ALLERGIES,. MIGRAINES History of Any Multi-Drug Resistant Organisms: None Reported Past Surgical History: Adenoidectomy, Cardiac Ablation, Cholecystectomy, Orthopedic Surgery, Pacemaker, Tonsillectomy, Tubal Ligation Additional Past Surgical History / Comment(s): RT TRIGGER FINGER SX. LT ROTATOR CUFF REPAIR. COLONOSCOPY,egd Past Anesthesia/Blood Transfusion Reactions: Motion Sickness, Postoperative Nausea & Vomiting (PONV) Additional Past Anesthesia/Blood Transfusion Reaction / Comment(s): no blood transfusion. no issues with sedation during colonoscopy Type of Cardiac Device: Permanent Pacemaker Device Placement Date:: 2022 Smoking Status: Former smoker - Past Family History Mother Family Medical History: No Reported History Medications and Allergies Home Medications Medication Instructions Recorded Confirmed Type Ascorbic Acid [Vitamin C] 1,000 mg PO DAILY 06/29/17 10/27/23 History Montelukast [Singulair] 10 mg PO DAILY 06/29/17 10/27/23 History Repaglinide [Prandin] 1 mg PO 1700 05/11/18 10/27/23 History Cholecalciferol (Vitamin D3) 125 mcg PO DAILY 10/14/20 10/27/23 History [Vitamin D3 (5000 Iu)] Hydroxychloroquine Sulfate 200 mg PO BID 10/14/20 10/27/23 History [Plaquenil] Vitamin B Complex 1 each PO Q2D 10/14/20 10/25/23 History Cyclobenzaprine [Flexeril] 2.5 mg PO HS 07/01/21 10/27/23 History Losartan Potassium [Cozaar] 12.5 mg PO DAILY 07/01/21 10/27/23 History Omeprazole 40 mg PO DAILY 07/01/21 10/27/23 History Ginkgo Biloba [place] Extract [Ginkgo 120 mg PO DAILY 10/19/22 10/27/23 History Biloba] Ipratropium [place] 0.06%Nasal 2 spray EA NOSTRIL DIRECTED PRN 10/19/22 10/27/23 History [Atrovent Nasal 0.06%] Magnesium 400 mg PO DAILY 10/19/22 10/27/23 History Rivaroxaban [Xarelto] 20 mg PO HS 10/19/22 10/25/23 History SUMAtriptan succinate 100 mg PO DIRECTED PRN 10/19/22 10/25/23 History Budesonide/Formoterol Fumarate 1 puff INHALATION DAILY 09/21/23 10/25/23 History [Symbicort 160-4.5 Mcg Inhaler] Potassium Gluconate 99 mg PO DAILY 09/21/23 10/27/23 History oxyBUTYnin chloride [Ditropan] 5 mg PO BID 09/21/23 10/27/23 History Albuterol Inhaler (Unk) 2 inh INHALATION DIRECTED 10/25/23 10/25/23 History Lutein(Unk) 1 tab PO DAILY 10/25/23 10/25/23 History Allergies Allergy/AdvReac Type Severity Reaction Status Date / Time Penicillins Allergy Anaphylaxis Verified 10/27/23 07:53 Surgical - Exam Vital Signs Temp Pulse Resp BP Pulse Ox 97.0 F L 89 18 134/60 98 10/27/23 08:05 10/27/23 08:05 10/27/23 08:05 10/27/23 08:05 10/27/23 08:05 - General well developed, well nourished - Eyes PERRL - ENT normal pinna - Neck no masses - Respiratory normal expansion - Cardiovascular Rhythm: regular - Abdomen Abdomen: soft, non tender Results - Labs Abnormal Lab Results - Last 24 Hours (Table) 10/27/23 Range/Units 08:16 POC Glucose (mg/dL) 122 H (70-110) mg/dL Assessment and Plan Assessment: Gerd change in bowel habits. Perform EGD and screening colonoscopy.
--- NOTE | 2023-10-27 09:48 | P.OP ---
Date of Procedure: 10/27/23 Preoperative Diagnosis: Gerd Screening colonoscopy Postoperative Diagnosis: Antral gastritis Mild diverticulosis Procedure(s) Performed: EGD Colonoscopy Anesthesia: MAC Surgeon: Rudy Garza Pathology: other (Antrum) Condition: stable Disposition: PACU Description of Procedure: Patient is placed on the endoscopy table in the lateral position. She received IV sedation. The gas close placed oropharynx passed down the esophagus into the stomach. Scope was then placed through the pylorus. The first and second portion of the duodenum appeared normal. Scope was then brought back to the antrum and there was significant inflammatory changes of the antrum. This was biopsied. Scope was then retroflexed and remainder of the stomach appeared normal. The GE junction was at 40 cm. The distal esophagus appeared noninflamed. A biopsy performed. The proximal esophagus appeared normal. Scope withdrawn the patient. Next digital rectal exam was performed. This revealed no abnormalities. The flexible colonoscope was then placed patient's anus tr and passed throughout the entire colon. The ileocecal valve was visualized. The cecum, ascending and transverse colon appeared normal. In the descending and sigmoid colon there is mild diverticular changes. Scope was then brought back to the rectum and this appeared normal. Scope withdrawn for the patient.
[2023-10-27 10:01] LABS: Glucose,Whole Blood 113 mg/dL (70-110)
[2023-10-27 10:30] VITALS: BP 124/77; PULSE 64; RESP 16
== END 2023-10-27 10:41 | disposition home or self-care (01) ==
LOC: ORWHC2ENDO 07:36
PROVIDERS: ATTEND Surgery
DX: K31.89 Other diseases of stomach and duodenum (principal); K21.00 Gastro-esophageal reflux disease with esophagitis, without bleeding; K57.30 Diverticulosis of large intestine without perforation or abscess without bleeding; E11.9 Type 2 diabetes mellitus without complications; E78.5 Hyperlipidemia, unspecified; I48.91 Unspecified atrial fibrillation; J45.909 Unspecified asthma, uncomplicated; M06.9 Rheumatoid arthritis, unspecified; Z79.51 Long term (current) use of inhaled steroids; Z87.891 Personal history of nicotine dependence; Z88.0 Allergy status to penicillin; Z90.49 Acquired absence of other specified parts of digestive tract; Z95.0 Presence of cardiac pacemaker; Z79.899 Other long term (current) drug therapy
CPT/HCPCS: 88305; 45378; 43239; J2704

== ENCOUNTER → 2024-01-06 | Outpatient (CLI) | payer MEDICARE ==
[2024-01-06 12:32] LABS: African American GFR (CKD) 71 (>60 ml/min/1.73 sqM); Blood Urea Nitrogen 28 mg/dL (7-17); Non-African American GFR(CKD) 61 (>60 ml/min/1.73 sqM)
--- NOTE | 2024-01-06 15:21 | CT ---
EXAMINATION TYPE: CT abdomen pelvis wo/w con DATE OF EXAM: 01/06/2024 COMPARISON: NONE HISTORY: 68-year-old female D53.9, GI bleed TECHNIQUE: Contiguous axial scanning of the abdomen and pelvis before and after administration of 100 ml Isovue 300 IV contrast. Delayed images through the kidneys and coronal/sagittal reconstructions performed. CT DLP: 1558 mGycm Automated exposure control for dose reduction was used. FINDINGS: The heart is normal size without pericardial effusion. Right-sided pacemaker leads are noted. Lung ba ses clear without pleural effusion. No focal liver lesion or biliary ductal dilatation. Portal venous system is patent. Cholecystectomy c lips. Adrenal glands, spleen, and mildly atrophic pancreas show no gross abnormality. Bilateral extrarenal pelves with symmetric uptake and excretion of contrast from both kidneys. No dilated small bowel, free fluid, or free air. No mesenteric or retroperitoneal lymphadenopathy. Normal appendix. There is moderate stool burden. No pericolonic inflammatory change. Bladder partially distended. Pelvic floor relaxation. Uterus is anteverted but retroflexed. Tiny righ t-sided pelvic phlebolith. No abnormal fluid collection in the pelvis. Ovaries are visualized. Bones: Mild osteitis pubis. Mild degenerative change both hips. Mild multilevel degenerative disc disease. Facet arthropathy lower lumbar spine. There is grade 1 ret rolisthesis L2-L3. IMPRESSION: 1. MODERATE STOOL BURDEN. 2. NONSPECIFIC MILD GENERALIZED ATROPHY OF THE PANCREAS. 3. SOME PELVIC FLOOR RELAXATION.
== END | disposition home or self-care (01) ==
LOC: RADCTMAIN 10:38
PROVIDERS: ATTEND Family Medicine
DX: D53.9 Nutritional anemia, unspecified (principal); K86.89 Other specified diseases of pancreas; N81.89 Other female genital prolapse
CPT/HCPCS: 82565; 84520; 74178; 36415; Q9967

== ENCOUNTER → 2024-09-26 | Outpatient (CLI) | payer MEDICARE ==
--- NOTE | 2024-09-26 10:14 | FL ---
EXAMINATION TYPE: FL barium swallow DATE OF EXAM: 09/26/2024 8:49 AM COMPARISON: 01/14/2023 CLINICAL INDICATION:Female, 69 years old with history of R13.10 Dysphagia; TECHNIQUE: The procedure was explained and patient history elicited. All patient questions were ans wered prior to start of procedure. Multiple spot fluoroscopic images of the esophagus were obtained a fter the oral ingestion of effervescent crystals and liquid barium as the contrast agent. Fluoroscopic time:34 sec Fluoroscopic images:0 Radiographs taken: 153 DAP: NOT REPORTED [id number] FINDINGS: The esophagus demonstrates normal primary and secondary peristalsis. Tertiary contractions are seen w ith delayed emptying of the esophageal contents. Small hiatal hernia present. The esophageal mucosa i s smooth without evidence of focal stricture, ulceration, or abnormal outpouching. No gastroesophage al reflux disease was identified IMPRESSION: 1. Esophageal dysmotility. 2. Small hiatal hernia. [facility], , 09/26/2024 10:11 AM
== END | disposition home or self-care (01) ==
LOC: RADFLMAIN 08:17
PROVIDERS: ATTEND Otolaryngology
DX: K22.4 Dyskinesia of esophagus (principal); K44.9 Diaphragmatic hernia without obstruction or gangrene; R13.10 Dysphagia, unspecified
CPT/HCPCS: 74220

== ENCOUNTER → 2024-10-12 | Outpatient (CLI) | payer MEDICARE ==
--- NOTE | 2024-10-12 11:54 | BD ---
EXAMINATION TYPE: Axial Bone Density DATE OF EXAM: 10/12/2024 CLINICAL HISTORY: 69 years old Female. ICD-10 CODE: N95.1 MENOPAUSAL AND FEMALE CLIMA , Additional H istory: Height: 64.5 Weight: 139.9 FRAX RISK QUESTIONS: Alcohol (3 or more units per day): no Family History (Parent hip fracture): no Glucocorticoids (More than 3mos): no (Ex: prednisone, prednisolone, methylprednisolone, dexamethasone, and hydrocortisone). History of Fracture in Adulthood: no Secondary Osteoporosis: 1. Type 1 Diabetes: no 2. Hyperthyroidism: no 3. Menopause before 45: no 4. Malnutrition: no 5. Chronic liver disease: no Rheumatoid Arthritis: yes Current Tobacco Use: no RISK FACTORS HISTORY OF: Hip Fracture (Right/Left): no Spine Fracture: no History of Wrist Fracture: no Surgery to Spine/Hip(right/left)/Wrist (right/left): no MEDICATIONS: Thyroid Medications: no Osteoporosis Medications: no EXAM MEASUREMENTS: Bone mineral densitometry was performed using the [place] System. Bone mineral density as measured about the Lumbar spine is: ----- L1-L4(G/cm2): 0.970 T Score Values are as follows: ----- L1: -2.4 ----- L2: -1.9 ----- L3: -1.0 ----- L4: -2.1 ----- L1-L4: -1.7 Z Score Values are as follows: ----- L1: -0.7 ----- L2: -0.2 ----- L3: 0.7 ----- L4: -0.3 ----- L1-L4: 0.0 Baseline Study Bone mineral density about the R hip (g/cm2): 0.740 Bone mineral density about the L hip (g/cm2): 0.724 T Score values are as follows: -----R Neck: -2.7 -----L Neck: -2.8 -----R Total: -2.1 -----L Total: -2.3 Z Score values are as follows: -----R Neck: -0.9 -----L Neck: -1.0 -----R Total: -0.6 -----L Total: -0.7 Baseline Study FRAX%s: The graph provided illustrates a 22.0% chance for a major osteoporotic fx and a 7.6% chance f or the hips probability for fx in 10 years time. IMPRESSION: Osteoporosis (T Score less than -2.5). There is increased fracture risk and therapy is usually indicated based on age. Re-Screen 1-2 years. NOTE: T-SCORE=SD OF THE YOUNG ADULT MEAN. [facility], , 10/12/2024 11:52 AM
--- NOTE | 2024-10-12 12:41 | MM ---
Reason for Exam: Screening (asymptomatic). Last screening mammogram was performed 12 month(s) ago. Patient History: Menarche at age 7. First Full-Term at age 23. Postmenopausal. Risk Values: Rosie 5 year model risk: 2.1%. NCI Lifetime model risk: 5.9%. Prior Study Comparison: 10/01/2021 Bilateral Screening Mammogram, [facility]. 10/05/2022 Bilateral MG 3D screening mammo w/cad, [facility]. 10/11/2023 Bilateral MG 3D screening mammo w/cad, [facility]. Tissue Density: There are scattered areas of fibroglandular density. Findings: Analyzed By CAD. Generator device over the left pectoralis. There is no suspicious group of microcalcifications or new suspicious mass in either breast. Overall Assessment: Negative, BI-RAD 1 Management: Screening Mammogram of both breasts in 1 year. . Patient should continue monthly self-breast exams. A clinical breast exam by your physician is recommended on an annual basis. This exam should not preclude additional follow-up of suspicious palpable abnormalities. Note on Rosie scores and lifetime risk: 1. A Rosie score greater than 3% is considered moderate risk. If this is the case, consider specialist referral to assess eligibility for a risk reducing agent. 2. If overall lifetime risk for the development of breast cancer is 20% or higher, the patient may qualify for future screening with alternating mammogram and breast MRI. [facility], , 10/12/2024 12:39 PM. Electronically signed and approved by: Jordan Pillai M.D. Radiologist
== END | disposition home or self-care (01) ==
LOC: RADBDWWP 09:08
PROVIDERS: ATTEND Family Medicine
DX: Z12.31 Encounter for screening mammogram for malignant neoplasm of breast (principal); R92.323 Mammographic fibroglandular density, bilateral breasts; M81.0 Age-related osteoporosis without current pathological fracture; Z78.0 Asymptomatic menopausal state
CPT/HCPCS: 77063; 77067; 77080